=== PATIENT | male | born 1960 | race African-American/Black ===

== ENCOUNTER 2022-06-06 10:21 | Emergency (ER) | payer MEDICAID ==
[~2022-06-06] VITALS: Ht 172.7 cm; Wt 70.0 kg
[2022-06-06 11:32] VITALS: BP 150/90
[2022-06-06 11:47] LABS: BASOPHILS % 0.5 % (0.0-2.0); EOSINOPHILS % 1.7 % (0.0-5.0); HEMATOCRIT. 38.1 % (42.0-52.0); HEMOGLOBIN. 12.5 g/dL (14.0-18.0); LYMPHOCYTES % 8.8 % (20.0-50.0); MEAN CORPUSCULAR HEMOGLOBIN 29.8 pg (28.0-32.0); MEAN PLATELET VOLUME 11.2 fl (7.4-10.4); MONOCYTES % 6.8 % (2.0-8.0); NEUTROPHILS % 82.2 % (40.0-76.0); PLATELET 203 x1000/uL (130-400); RED BLOOD CELL COUNT 4.19 mill/uL (4.7-6.1); RED CELL DISTRIBUTION WIDTH 15.2 % (11.6-14.6)
[2022-06-06 11:52] LABS: CHLORIDE 106 mEq/L (98-107)
[2022-06-06] MEDS ORDERED: FURO-151 MT (13:08)
== END 2022-06-06 14:23 | disposition home or self-care (01) ==
LOC: ER 10:35
DX: M79.89 Other specified soft tissue disorders (principal); I11.0 Hypertensive heart disease with heart failure; I50.9 Heart failure, unspecified; Z86.73 Personal history of transient ischemic attack (TIA), and cerebral infarction without residual deficits
CPT/HCPCS: 36415; 71045; 80053; 83880; 84484; 85025; 93005; 99285